=== PATIENT | male | born 1940 | race Caucasian/White ===

== ENCOUNTER 2018-07-02 05:34 | Inpatient (IN) | payer MEDICARE, BC ==
[2018-06-25 15:56] LABS: ALBUMIN 3.7 G/DL (3.4-5.0); ALBUMIN/GLOBULIN RATIO 0.9 (1.1-1.5); ALKALINE PHOSPHATASE 97 IU/L (46-116); BLOOD UREA NITROGEN 19 MG/DL (7-18); BUN/CREATININE RATIO 14.1 (5.4-32.0); CALCIUM 8.5 MG/DL (8.5-10.1); CHLORIDE 100 MMOL/L (99-107); CREATININE 1.35 MG/DL (0.60-1.10); PRE OP ALT 19 U/L (30-65); PRE OP ANION GAP 8 (8-16); PRE OP AST 14 U/L (10-37); PRE OP BILIRUB, TOTAL 0.3 MG/DL (0.0-1.0); PRE OP GLUCOSE 91 MG/DL (70-104); PRE OP SODIUM 139 MMOL/L (135-145); TOTAL CARBON DIOXIDE 31.4 MMOL/L (24-32); TOTAL PROTEIN 7.9 G/DL (6.4-8.2); eGFR 52 ML/MIN
[2018-06-25 15:58] LABS: BASOPHILS # (AUTO) 0.2 X10'3 (0-0.2); BASOPHILS % (AUTO) 2.8 % (0-1); EOSINOPHILS # (AUTO) 0.1 X10'3 (0-0.9); EOSINOPHILS % (AUTO) 1.4 % (0-6); LYMPHOCYTES # (AUTO) 1.8 X10'3 (1.1-4.8); LYMPHOCYTES % (AUTO) 21.9 % (21-51); MEAN CORPUSCULAR HEMOGLOBIN 27.7 PG (27.0-31.0); MEAN CORPUSCULAR HGB CONC 32.7 % (33.0-36.5); MEAN CORPUSCULAR VOLUME 84.6 FL (78-98); MEAN PLATELET VOLUME 7.6 FL (7.4-10.4); MONOCYTES # (AUTO) 0.4 X10'3 (0-0.9); MONOCYTES % (AUTO) 4.7 % (2-12); NEUTROPHILS # (AUTO) 5.7 X10'3 (1.8-7.7); NEUTROPHILS % (AUTO) 69.2 % (42-75); PRE OP HEMATOCRIT 45.8 % (42.0-52.0); PRE OP PLATELET COUNT 324 X10'3 (140-440); PRE OP POTASSIUM 3.3 MMOL/L (3.4-5.1); RED BLOOD COUNT 5.42 X10'6 (4.70-6.10); RED CELL DISTRIBUTION WIDTH 14.2 % (11.5-14.5)
[2018-06-25 16:05] LABS: PRE OP PROTIME 10.4 SECONDS (9.0-12.0)
[~2018-07-02] VITALS: Ht 180.3 cm; Wt 98.5 kg
[2018-07-02] VITALS (17 sets, daily range): BP systolic 101–160; BP diastolic 55–81
[~2018-07-02 05:34] MED LIST: ASPI-1265 PO; HYDR12.5 PO; SAW/1TAB2 PO; TAMS0.4C32 PO; UMEC1DIS PO; albuterol 2.5 MG/3 ML nebule NEB ONE; ceFAZolin 1,000 MG in NS 100ML IVPB IV ONE; famotidine 20mg tablet PO ONE; ringers solution, lacted 1,000 ML IV SCH
[2018-07-02 06:41] LABS: ISTAT CREATININE 1.2 mg/dL (0.8-1.3); ISTAT HGB 15.6 g/dl (14.0-18.0); ISTAT IONIZED CALCIUM 1.16 mmol/L (1.03-1.32); ISTAT K 4.5 mmol/L (3.5-5.1); POC BUN/CREATININE RATIO 21.7 (5.4-32.0)
[2018-07-02] MEDS ORDERED: tetracaine 1% (10mg/ml) pres. free inj. ONE (07:27)
[2018-07-02] MEDS ORDERED: fentaNYL/PF 50MCG/1 ML 2ML syringe ONE (07:29)
[2018-07-02] MEDS ORDERED: midazolam 2 mg/2 ml injection ONE (07:29)
[2018-07-02] MEDS ORDERED: ringers solution, lacted 1,000 ML IV SCH (08:34)
[2018-07-02] MEDS ORDERED: morphine 4 MG/ML inj SYRINge IV PRN (08:35)
[2018-07-02] MEDS ORDERED: HYDROmorphone inj. 0.5 MG/0.5 ML DISP.SYRIN IV PRN ×2 (08:35)
[2018-07-02] MEDS ORDERED: ondansetron/PF 4mg/2ml inj IV PRN ×2 (08:35→09:00)
[2018-07-02] MEDS ORDERED: diphenhydrAMINE 50 mg/ml inj ONE (08:45)
[2018-07-02] MEDS ORDERED: ePHEDrine 50MG/ML INJ. ONE (08:52)
[2018-07-02] MEDS ORDERED: oxybutynin 5mg tablet PO PRN (09:00)
[2018-07-02] MEDS ORDERED: acetaminophen 325mg tablet PO PRN (09:00)
[2018-07-02] MEDS ORDERED: mag hydrox/Alum hydrox/simeth 30ml oral suspension PO PRN (09:00)
[2018-07-02] MEDS ORDERED: zolpidem 5mg tablet PO PRN (09:00)
[2018-07-02] MEDS ORDERED: proCHLORperazine 10 MG/2 ml inj IV PRN (09:00)
[2018-07-02] MEDS ORDERED: ceFAZolin 1000mg inj ONE (09:34)
[2018-07-02] MEDS: HYDROcodone/acetaminophen 10/325mg tab PO PRN ×2 (15:47→23:57)
[2018-07-02] MEDS: ceFAZolin 1GM/D5W- ADD-VANTAGE 50 ML IV SCH ×2 (15:48→23:57)
[2018-07-02] MEDS: potassium cl 20mEq in 1/2 NS 1,000 ML IV SCH ×2 (16:58→17:13)
[2018-07-02] MEDS: lactobacillus rhamnosus 10,000 MMU CELLS/CAPSULE PO SCH (19:48)
[2018-07-02] MEDS: docusate sod 100mg capsule PO SCH (19:48)
[2018-07-02] MEDS: enoxaparin 30mg/0.3ml syringe SUBCUT SCH (19:50)
[2018-07-03] VITALS: BP 99/75
[2018-07-03] MEDS: potassium cl 20mEq in 1/2 NS 1,000 ML IV SCH ×2 (02:17→08:58)
[2018-07-03 04:00] VITALS: BP 140/74
[2018-07-03 06:17] LABS: ALBUMIN 2.7 G/DL (3.4-5.0); ANION GAP 5 (8-16); BASOPHILS # (AUTO) 0.2 X10'3 (0-0.2); BASOPHILS % (AUTO) 2.3 % (0-1); BLOOD UREA NITROGEN 22 MG/DL (7-18); BUN/CREATININE RATIO 14.8 (5.4-32.0); CALCIUM 8.3 MG/DL (8.5-10.1); CHLORIDE 103 MMOL/L (99-107); CREATININE 1.49 MG/DL (0.60-1.10); EOSINOPHILS # (AUTO) 0.1 X10'3 (0-0.9); EOSINOPHILS % (AUTO) 1.8 % (0-6); GLUCOSE 93 MG/DL (70-104); HEMOGLOBIN 13.7 g/dl (14.0-17.9); LYMPHOCYTES # (AUTO) 1.9 X10'3 (1.1-4.8); LYMPHOCYTES % (AUTO) 26.3 % (21-51); MEAN CORPUSCULAR HEMOGLOBIN 28.1 PG (27.0-31.0); MEAN CORPUSCULAR HGB CONC 33.4 % (33.0-36.5); MEAN CORPUSCULAR VOLUME 84.3 FL (78-98); MEAN PLATELET VOLUME 7.6 FL (7.4-10.4); MONOCYTES # (AUTO) 0.4 X10'3 (0-0.9); MONOCYTES % (AUTO) 6.1 % (2-12); NEUTROPHILS # (AUTO) 4.6 X10'3 (1.8-7.7); NEUTROPHILS % (AUTO) 63.5 % (42-75); PLATELET COUNT 258 X10'3 (140-440); RED BLOOD COUNT 4.87 X10'6 (4.70-6.10); RED CELL DISTRIBUTION WIDTH 14.2 % (11.5-14.5); SODIUM 140 MMOL/L (135-145); TOTAL CARBON DIOXIDE 31.6 MMOL/L (24-32); WHITE BLOOD COUNT 7.2 X10'3 (4.5-11.0); eGFR 46 ML/MIN
[2018-07-03 07:00] VITALS: BP 153/76
[2018-07-03] MEDS ORDERED: pantoprazole 40mg Tablet.DR PO SCH (07:30)
[2018-07-03] MEDS ORDERED: tamsulosin 0.4mg capsule PO SCH (08:00)
[2018-07-03] MEDS ORDERED: ANORO ELLIPTA PO SCH (08:00)
[2018-07-03] MEDS ORDERED: HYDROchlorothiazide 12.5mg capsule PO SCH (08:00)
[2018-07-03] MEDS: ceFAZolin 1GM/D5W- ADD-VANTAGE 50 ML IV SCH (08:10)
[2018-07-03] MEDS: lactobacillus rhamnosus 10,000 MMU CELLS/CAPSULE PO SCH (08:10)
[2018-07-03] MEDS: docusate sod 100mg capsule PO SCH (08:11)
[2018-07-03] MEDS: enoxaparin 30mg/0.3ml syringe SUBCUT SCH (08:11)
[2018-07-03] MEDS ORDERED: DOCU-28 PO (09:51)
[2018-07-03 11:00] VITALS: BP 134/75
== END 2018-07-03 13:56 | disposition home or self-care (01) | DRG 713 ==
LOC: PAS 05:34 → SUR 3N 08:58 → PAS 23:29 → SUR 3N 23:30
PROVIDERS: ADMIT Urology; ATTEND Urology
PROC: 0TJB8ZZ Inspection of Bladder, Via Natural or Artificial Opening Endoscopic (ICD-10-PCS; 2018-07-02)
PROC: 0VB08ZZ Excision of Prostate, Via Natural or Artificial Opening Endoscopic (ICD-10-PCS; principal; 2018-07-02 07:47)
DX: N40.1 Benign prostatic hyperplasia with lower urinary tract symptoms (principal); N13.8 Other obstructive and reflux uropathy; N32.0 Bladder-neck obstruction; J44.9 Chronic obstructive pulmonary disease, unspecified; E66.9 Obesity, unspecified; R39.15 Urgency of urination; N32.3 Diverticulum of bladder; R33.8 Other retention of urine; R35.1 Nocturia; Z79.82 Long term (current) use of aspirin; Z79.01 Long term (current) use of anticoagulants; Z79.899 Other long term (current) drug therapy; Z86.718 Personal history of other venous thrombosis and embolism; Z85.51 Personal history of malignant neoplasm of bladder; Z87.891 Personal history of nicotine dependence; Z68.30 Body mass index [BMI] 30.0-30.9, adult
CPT/HCPCS: 36415; 80047; 80048; 80053; 85025; 85610; 85730; 86885; 86900; 86901; 87070; 94640; 94760; A4346; A4402; A4615; G0378; J0690; J1200; J1650; J2250; J3010; J7030; J7120